=== PATIENT | male | born 1945 | race Caucasian/White ===

== ENCOUNTER → 2020-09-15 | Outpatient (CLI) | payer MEDICARE | LOC: KOH-I 09:12 | DX: N28.1 Cyst of kidney, acquired (principal) | CPT/HCPCS: 74176 ==

== ENCOUNTER → 2021-11-30 | Outpatient (CLI) | payer MEDICARE | LOC: KOH-I 11:56 | DX: R05.9 Cough, unspecified (principal) | CPT/HCPCS: 71046 ==